=== PATIENT | male | born 1990 | race Caucasian/White ===

== ENCOUNTER → 2020-11-02 | Day surgery (SDC) | payer BC ==
[2020-10-28 13:08] VITALS: BMI 25.7
[~2020-11-02] MED LIST: PROPOFOL 20 ML ONE
[2020-11-02 09:08] VITALS: TEMP 96.8
[2020-11-02 09:22] VITALS: BP 128/77; PULSE 73
== END | disposition home or self-care (01) ==
LOC: FASU-ENDO 07:45
PROVIDERS: ATTEND Internal Medicine Gastroenterology
PROC: 0DB68ZX Excision of Stomach, Via Natural or Artificial Opening Endoscopic, Diagnostic (ICD-10-PCS; 2020-11-02)
PROC: 0DB98ZX Excision of Duodenum, Via Natural or Artificial Opening Endoscopic, Diagnostic (ICD-10-PCS; principal; 2020-11-02 08:47)
DX: K29.50 Unspecified chronic gastritis without bleeding (principal); K44.9 Diaphragmatic hernia without obstruction or gangrene; R12 Heartburn
CPT/HCPCS: 88305-TC; 88342-TC